=== PATIENT | male | born 1980 | race Caucasian/White ===

== ENCOUNTER 2022-04-20 10:46 | Emergency (ER) | payer SELFPAY ==
[~2022-04-20] VITALS: Ht 177.8 cm; Wt 72.6 kg
[2022-04-20 10:48] VITALS: BP 115/71
--- NOTE | 2022-04-20 10:58 | NUR ---
pt in room, conversational, given narcan in the field, found unresponsive in a restaurant restroom, admits to have inhaled fentanyl. NSR on cm, o2 sat 99% ra, sr up times 2
[2022-04-20] MEDS ORDERED: NALO4SPR NS (13:09)
[2022-04-20] MEDS ORDERED: NACL 0.9% 1,000 ML IV ONE (13:20)
[2022-04-20 13:55] LABS: HEMATOCRIT 39.2 % (36-52); HEMOGLOBIN 13.4 g/dL (12.0-18.0); MEAN CORPUSCULAR HEMOGLOBIN 32 pg (27-31); MEAN CORPUSCULAR HGB CONC 34 g/dL (33-37); MEAN CORPUSCULAR VOLUME 92.9 fL (80-94); PLATELET COUNT (AUTO) 323 K/uL (140-450); RED BLOOD CELL COUNT(AUTO) 4.21 MIL/uL (4.20-6.10); RED CELL DISTRIBUTION WIDTH 12.7 % (11.6-13.7); WHITE BLOOD COUNT (AUTO) 15.4 K/uL (4.8-10.8)
[2022-04-20 13:58] LABS: ALBUMIN 3.7 g/dL (3.4-5.0); ANION GAP 6.5 (8-16); CARBON DIOXIDE 34.2 mmol/L (21-32); CREATININE 0.9 mg/dL (0.6-1.3); POTASSIUM 3.7 mmol/L (3.5-5.1); TOTAL BILIRUBIN 0.4 mg/dL (0.0-1.0)
[2022-04-20 16:23] VITALS: BP 121/80
--- NOTE | 2022-04-20 16:24 | NUR ---
Patient discharged with v/s stable. Written and verbal after care instructions given and explained. Patient alert, oriented and verbalized understanding of instructions. Ambulatory with spouse, steady gait. All questions addressed prior to discharge. ID band removed. Patient advised to follow up with PMD. Rx of narcan spray (script) given. Patient educated on indication of medication including possible reaction and side effects. Opportunity to ask questions provided and answered.
--- NOTE | 2022-04-20 16:42 | NUR ---
dinner, water and juice given to pt. pt is waiting in lobby for fiance to corn picker
[2022-04-20 21:19] LABS: LYMPHOCYTES % (MANUAL) 2 % (20-46); MONOCYTES % (MANUAL) 3 % (5-12)
== END 2022-04-20 16:23 | disposition home or self-care (01) ==
LOC: MED 10:46
DX: F11.10 Opioid abuse, uncomplicated (principal); T40.411A Poisoning by fentanyl or fentanyl analogs, accidental (unintentional), initial encounter; Y92.89 Other specified places as the place of occurrence of the external cause
CPT/HCPCS: 36415; 71045; 80053; 85025; 93005; 96360; 99291; J7030; Q0092